=== PATIENT | female | born 1985 | race Caucasian/White ===

== ENCOUNTER 2019-02-22 09:19 | Emergency (ER) | payer BC, SELFPAY ==
[2019-02-22] MEDS ORDERED: Acetaminophen 500 MG TAB ONE (10:11)
[2019-02-22] MEDS ORDERED: diphenhydrAMINE 50 MG/ML VIAL ONE (10:11)
[2019-02-22] MEDS ORDERED: Metoclopramide HCl 10 MG/2 ML VIAL ONE (10:11)
--- NOTE | 2019-02-22 10:57 | CT ---
CT BRAIN WITHOUT CONTRAST: HISTORY:Headache COMPARISON:None FINDINGS: No evidence of acute infarct, hemorrhage, midline shift or abnormal extra-axial fluid collections is seen. The ventricular size is appropriate and the basilar cisterns are patent. The bony calvarium is intact. The visualized paranasal sinuses and mastoid air cells are well aerated. IMPRESSION: No CT evidence of acute intracranial process.
== END 2019-02-22 12:27 | disposition home or self-care (01) ==
LOC: ERS 09:19
DX: R51 Headache (principal); F41.9 Anxiety disorder, unspecified; F17.210 Nicotine dependence, cigarettes, uncomplicated; E05.90 Thyrotoxicosis, unspecified without thyrotoxic crisis or storm
CPT/HCPCS: 70450; 96365; 96366; 96375; J1200; J2765

== ENCOUNTER 2019-03-19 17:16 | Emergency (ER) | payer BC | END 2019-03-19 17:48 | disposition home or self-care (01) | LOC: ERS 17:16 | DX: K04.7 Periapical abscess without sinus (principal); E05.90 Thyrotoxicosis, unspecified without thyrotoxic crisis or storm; F41.9 Anxiety disorder, unspecified; F17.210 Nicotine dependence, cigarettes, uncomplicated | CPT/HCPCS: 99283 ==

== ENCOUNTER 2019-03-31 21:05 | Emergency (ER) | payer BC | END 2019-03-31 22:57 | disposition home or self-care (01) | LOC: ERS 21:05 | DX: L42 Pityriasis rosea (principal); F41.9 Anxiety disorder, unspecified; F17.210 Nicotine dependence, cigarettes, uncomplicated | CPT/HCPCS: 99282 ==

== ENCOUNTER 2019-10-05 11:19 | Emergency (ER) | payer BC, OTHER ==
[2019-10-07 14:40] LABS: SARS-CoV-2 MS2 Positive; SARS-CoV-2 N Gene Negative; SARS-CoV-2 S Gene Negative; SARS-CoV-2 by NAA Not Detected (NotDetected); SARS-CoV-2 orf1ab Negative
== END 2019-10-05 11:38 | disposition home or self-care (01) ==
LOC: ERS 11:19
DX: Z20.828 Contact with and (suspected) exposure to other viral communicable diseases (principal); E05.90 Thyrotoxicosis, unspecified without thyrotoxic crisis or storm; F41.9 Anxiety disorder, unspecified; F17.200 Nicotine dependence, unspecified, uncomplicated
CPT/HCPCS: 87635; 99283; U0003

== ENCOUNTER 2023-01-05 20:22 | Emergency (ER) | payer OTHER ==
[2023-01-05 21:42] LABS: SARS-CoV-2 NAA Rapid Test Not Detected (NotDetected)
== END 2023-01-05 20:55 | disposition home or self-care (01) ==
LOC: ERS 20:22
DX: R05.9 Cough, unspecified (principal); F17.210 Nicotine dependence, cigarettes, uncomplicated; Z20.822 Contact with and (suspected) exposure to COVID-19
CPT/HCPCS: 99283

== ENCOUNTER 2023-12-25 15:22 | Emergency (ER) | payer OTHER ==
[2023-12-25] MEDS ORDERED: Ketorolac Tromethamine 30 MG (1 mL) VIAL ONE (17:01)
[2023-12-25] MEDS ORDERED: predniSONE 20 MG TAB ONE (17:01)
== END 2023-12-25 17:28 | disposition home or self-care (01) ==
LOC: ERS 15:22
DX: J02.0 Streptococcal pharyngitis (principal); F17.210 Nicotine dependence, cigarettes, uncomplicated
CPT/HCPCS: 87428; 87430; 96372; 99283; J1885; J7512